=== PATIENT | female | born 1950 | race Caucasian/White ===

== ENCOUNTER 2020-07-05 10:00 | Outpatient (CLI) | payer BC, SELFPAY | END 2020-07-05 10:01 | disposition home or self-care (01) | LOC: ANHCOVIDVC 10:00 | PROVIDERS: PCP Family Medicine | DX: Z23 Encounter for immunization (principal) | CPT/HCPCS: 0001A; 91300 ==

== ENCOUNTER 2020-07-26 09:58 | Outpatient (CLI) | payer BC, SELFPAY | END 2020-07-26 09:59 | disposition home or self-care (01) | LOC: ANHCOVIDVC 09:58 | PROVIDERS: PCP Family Medicine | DX: Z23 Encounter for immunization (principal) | CPT/HCPCS: 0002A; 91300 ==

== ENCOUNTER → 2020-11-12 07:46 | Outpatient (CLI) | payer BC, SELFPAY ==
--- NOTE | ~2020-11-12 | MM_ITS ---
EXAMINATION: MM screening lula BI w fabiana HISTORY: Screening mammogram TECHNIQUE: Craniocaudal and mediolateral oblique 3-D tomosynthesis images were obtained and synthetic 2-D images were generated. CAD analysis was submitted and interpreted. COMPARISON: 01/09/2011 bilateral digital screening mammogram BREAST PARENCHYMAL COMPOSITION: The breasts are almost entirely fatty. FINDINGS: There is no evidence of suspicious mass, calcification, or architectural distortion to sugg est malignancy in either breast. There has been no suspicious interval change. IMPRESSION: 1. No mammographic evidence of malignancy. 2. Recommend routine screening mammography in one year. BI-RADS Category 1: Negative Reviewed, dictated and finalized at location A.
== END ==
PROVIDERS: PCP Family Medicine; Visit Provider Family Medicine
DX: Z12.31 Encounter for screening mammogram for malignant neoplasm of breast (principal)
CPT/HCPCS: 77063; 77067

== ENCOUNTER → 2022-03-02 12:03 | Outpatient (CLI) | payer MEDICARE, SELFPAY ==
--- NOTE | ~2022-03-02 | DEXA_ITS ---
Bone Density Report Name: TONIO YOUNG Age: 71 Sex: Female Ethnicity: White Date of : 1950 Indication: postmenopausal; screening for osteoporosis; history of glucocorticoids; Referring Provider: Mohan Tillman Study: Bone densitometry was performed. Exam Date: March 02, 2022 Accession number: [id number] Bone Density: Region BMD T-score Z-score Classification AP Spine (L1-L4) 0.816 -2.1 0.0 Osteopenia Femoral Neck (Left) 0.346 -4.5 -2.8 Osteoporosis Total Hip (Left) 0.564 -3.1 -1.6 Osteoporosis Femoral Neck (Right) 0.504 -3.1 -1.3 Osteoporosis Total Hip (Right) 0.611 -2.7 -1.2 Osteoporosis Total Hip Mean 0.588 -2.9 -1.4 Osteoporosis World Health Organization criteria for BMD impression classify patients as: Normal (T-score at or above -1.0), Osteopenia (T-score between -1.0 and -2.5), or Osteoporosis (T-score at or below -2.5). 10-year Fracture Risk: FRAX not reported because: Some T-score for Spine Total or Hip Total or Femoral Neck at or below -2.5 Clinical Information Provided by Patient: Has taken Glucocorticoids Has used the following medications: Calcium Patient maximum height was 62.0 Menopause Age: 47 No regular weight bearing exercise Does not regularly consume dairy products Drinks caffeinated beverages Onset of menses at age 14 Number of children 0 Impression: The patient has osteoporosis, based on the Left Femoral Neck T-score. The patient has risk factors, including: history of glucocorticoid therapy. Discussion: HIGH RISK OF FRACTURE. BONE DENSITY IS UNDESIRABLY LOW AT ONE OR MORE SKELETAL SITES, CONSISTENT WITH OSTEOPOROSIS. ALSO, BONE DENSITY IS LOWER THAN EXPECTED FOR AGE AND SEX AT ONE OR MORE SKELETAL SITES; RECOMMEND A DILIGENT SEARCH FOR SECONDARY CAUSES OF BONE LOSS. This patient's lowest T-score meets the World Health Organization's (WHO) criteria for osteoporosis at one or more sites (T-score -2.5 or below). In untreated patients, the risk of osteoporotic fracture increases approximately two-fold for each 1.0 SD decrease in T-score. Low bone density is not the only risk factor for fracture; also consider factors such as patient's age, frailty or poor health, risk of falling, risk of injury, previous osteoporotic fracture, family history of osteoporosis, cigarette smoking, low body weight, etc. Not everyone with low bone mineral density has osteoporosis; osteomalacia and other metabolic bone disorders should also be considered. Patients who have osteoporosis should be evaluated for specific diseases and conditions (secondary causes) that may cause or contribute to bone loss. The [place] [employer] (AACE) and National Osteoporosis Foundation (NOF) recommend pharmacologic intervention for all postmenopausal women whose T-score is in this range.
--- NOTE | ~2022-03-02 | MM_ITS ---
EXAMINATION: MM screening lula BI w fabiana HISTORY: Screening mammogram TECHNIQUE: Craniocaudal and mediolateral oblique 3-D tomosynthesis images were obtained and synthetic 2-D images were generated. CAD analysis was submitted and interpreted. COMPARISON: 11/08/2020, 01/09/2011 bilateral screening mammogram examinations BREAST PARENCHYMAL COMPOSITION: The breasts are almost entirely fatty. FINDINGS: There is no evidence of suspicious mass, calcification, or architectural distortion to sugg est malignancy in either breast. There has been no suspicious interval change. IMPRESSION: 1. No mammographic evidence of malignancy. 2. Recommend routine screening mammography in one year. BI-RADS Category 1: Negative Reviewed, dictated and finalized at location A. MAKER
== END ==
PROVIDERS: PCP Family Medicine; Visit Provider Family Medicine
DX: Z12.31 Encounter for screening mammogram for malignant neoplasm of breast (principal); Z78.0 Asymptomatic menopausal state; M85.88 Other specified disorders of bone density and structure, other site; M81.0 Age-related osteoporosis without current pathological fracture
CPT/HCPCS: 77063; 77067; 77080

== ENCOUNTER 2022-05-31 08:49 | Outpatient (CLI) | payer MEDICARE, SELFPAY ==
--- NOTE | ~2022-05-31 | US_ITS ---
Duplex Sonography of the bilateral lower extremities: Indication: Swelling Sagittal and transverse B-mode images as well as color-flow imaging were performed on the right and l eft femoral and popliteal veins. B-mode examination was done without and with compression in the tra nsverse plane. There is good visualization of the bilateral common femoral, proximal profunda femora l, superficial femoral, greater saphenous, and popliteal veins. Normal flow was seen on color-flow im aging. Normal compressibility was demonstrated. Calf veins are poorly visualized. Impression: No evidence of deep vein thrombosis involving the bilateral femoral, greater saphenous, s uperficial femoral, or popliteal veins. Reviewed, dictated and finalized at location M. N FARMER Impression: No evidence of deep vein thrombosis involving the bilateral femoral , greater saphenous, superficial femoral, or popliteal veins.
== END 2022-05-31 08:50 | disposition home or self-care (01) ==
PROVIDERS: PCP Family Medicine; Visit Provider Physician Assistant
DX: R60.0 Localized edema (principal); Z86.711 Personal history of pulmonary embolism
CPT/HCPCS: 93970

== ENCOUNTER 2022-09-18 14:36 | Emergency (ER) | payer MEDICARE, SELFPAY ==
[2022-09-18 14:47] VITALS: BP 135/69; PULSE 85; RESP 16; TEMP 36.7; O2SAT 99
--- NOTE | 2022-09-18 14:49 | ED.URI ---
HPI - URI/Sore Throat General Chief Complaint: Upper Respiratory Infection Stated Complaint: Fever Time Seen by Provider: 09/18/22 14:37 Source: patient Mode of arrival: ambulatory Limitations: no limitations History of Present Illness HPI Narrative: Yeimy is a 72-year-old female patient presenting to the clinic today with complaints of a sore throat, chills, and low-grade temperature x3 days. She does note that she does have some nasal drainage but has a history of seasonal allergies. MD elicited complaint: sore throat and nasal congestion Related Data Home Medications Medication Instructions Recorded Confirmed calcium carb-vit D3-minerals 600 1 tablet PO DAILY 03/09/19 08/14/22 mg calcium-400 unit tablet carboxymethyl 0.5 %-glycerin 1 1 drop ophthalmic (eye) Q6H PRN . 03/09/19 08/14/22 %-polysorb 80 0.5 %-PF eye dropperette (Refresh Optive Carlos-3 (PF)) cyanocobalamin (vitamin B-12) 1,000 mcg PO DAILY 03/09/19 08/14/22 1,000 mcg tablet (Vitamin B-12) famotidine 10 mg tablet (Pepcid AC) 10 mg PO DAILY 03/09/19 08/14/22 fexofenadine 180 mg tablet 180 mg PO DAILY 03/09/19 08/14/22 latanoprost 0.005 % eye drops 1 drop ophthalmic (eye) QPM 03/09/19 08/14/22 (Xalatan) triamcinolone acetonide 0.1 % 1 applic topical BID 03/09/19 08/14/22 topical cream mycophenolate mofetil 250 mg 1,000 mg PO Q12H 12/09/19 08/14/22 capsule pyridostigmine bromide 60 mg tablet 60 mg PO TID 12/09/19 08/14/22 Allergies Allergy/AdvReac Type Severity Reaction Status Date / Time glipizide Allergy Severe Swelling Verified 09/18/22 14:54 metformin Allergy Unknown Diarrhea Verified 09/18/22 14:54 amlodipine AdvReac Mild edema Verified 09/18/22 14:54 Review of Systems Review of Systems: Pertinent positives per HPI. Patient denies any fever, chills, rash, headache, visual changes, dizziness, cough, runny nose, sore throat, shortness of breath, chest pain, palpitations, nausea, vomiting, diarrhea, constipation, abdominal pain, or any urinary issues. [facility] Past Medical History Medical History History of pulmonary embolism Obesity Osteoporosis Family History Family History Mother Family history of primary malignant neoplasm of liver Social History Social History Smoking status: Former smoker Second hand tobacco smoke exposure: No Alcohol intake: never Substance use: never Substance use type: does not use Living arrangements: alone Occupation/Education: retired Gender identity (if verbalized by the patient): Female Sexual Orientation (if Verbalized by the Patient): Straight or Heterosexual Comments At the time of my signature, I reviewed and agree with the nursing past medical, surgical, social, and family history. There is no relevant family history pertinent to the patient complaint. Exam Narrative: General: Well-developed, well nourished, in no apparent distress Head: Normocephalic, atraumatic Eyes: Pupils equally round and reactive to light bilaterally, EOM intact, sclera and conjunctive clear, no discharge, lids normal Ears: TMs intact and clear, ear canals clear, no drainage, grossly hearing normal. Nose: Nares patent, no discharge, no inflammation, no sinus tenderness. Mouth: Oropharynx without lesions or masses, good dentition, MMM. Neck: Supple, trachea midline, no enlargement of anterior or posterior cervical nodes, no thyroid masses or goiter palpable. Cardio: Regular rate and rhythm, s1 and s2 normal, no murmur appreciated. Resp: Clear to auscultation bilaterally anteriorly and posteriorly, no rhonchi, rales, wheezing or rubs Course Course Emergency Course: Portions of this record may have been created with voice recognition software. Level of Care: Express Care Visit Vital Signs Vital s
== END 2022-09-18 15:07 | disposition home or self-care (01) ==
PROVIDERS: Emergency Provider Nurse Practitioner Family; PCP Family Medicine
DX: J02.9 Acute pharyngitis, unspecified (principal)
CPT/HCPCS: 87081; 87880; 99213; G0463

== ENCOUNTER 2023-04-17 05:01 | Emergency (ER) | payer MEDICARE, SELFPAY ==
--- NOTE | ~2023-04-17 | CT_ITS ---
EXAMINATION: CT abdomen pelvis wo con DATE: 04/17/2023 08:34 INDICATION: Left flank pain and hematuria TECHNIQUE: Computed tomography (CT) of the abdomen and pelvis was performed without intravenous contr ast. The dose-length product was 1445.64 mGy-cm. Automated exposure control and iterative reconstruct ion technique were employed. COMPARISON: None. FINDINGS: Lung bases are unremarkable. Heart size normal. No significant pleural or pericardial effus ion. Status post cholecystectomy. There is calcified granuloma in the liver. The liver, spleen, pancreas, adrenal glands are unremarkable. There are nonobstructing right renal st ones, largest measuring 5 mm. Nonobstructing left nephrolithiasis. Small exophytic hypodense lesions of the left kidney, most likely benign. Nonobstructive bowel gas pattern. There is a 4 mm stone at th e left UVJ. Mild hydronephrosis. No free air or free fluid. Nonobstructive bowel gas pattern. Mild germain mbar spondylosis. IMPRESSION: 1: Left UVJ stone measuring 4 mm with mild hydronephrosis. 2: Nonobstructing bilateral nephrolithiasis. Reviewed, dictated and finalized at location B. SEAL ASSEMBLER
[2023-04-17 05:02] VITALS: BP 180/71; PULSE 105; RESP 20; TEMP 36.8; O2SAT 94
[2023-04-17 07:00] VITALS: BP 166/92; PULSE 83; RESP 15; TEMP 36.4; O2SAT 98
[2023-04-17 08:14] LABS: Appearance Urine Clear (Clear); Bacteria Urine None Seen /hpf; Bilirubin Urine Negative (Negative); Blood Urine 2+ (Negative); Color Urine Yellow (Yellow); Glucose Urine UA Negative (Negative); Ketones Urine Negative (Negative); Leukocyte Esterase Ur Negative LEU/UL (Negative); Nitrate Urine Negative (Negative); Non Pathogenic Casts 0-2; Protein Urine 1+ mg/dL (Negative); Specific Grav Ur 1.012 (1.001-1.035); Squamous Epithelial Cell Urine Occasional /hpf (Few); Urobilinogen Urine 0.2 mg/dL (<2.0); WBC Urine 0-5 /hpf; pH Urine 5.5 (5.0-9.0)
[2023-04-17 08:19] LABS: Add Urine Microscopic? YES
--- NOTE | 2023-04-17 09:05 | ED.BACK ---
HPI - Back Pain/Injury General Chief Complaint: Back Pain/Injury Stated Complaint: lower back pain Time Seen by Provider: 04/17/23 07:00 History of Present Illness HPI Narrative: patient is a 72-year-old female who presents ER with left-sided flank pain. Sudden onset today. Moves into left upper abdomen. No urinary frequency urgency or dysuria. She has had no blood in her urine. No history kidney stones. No alleviating factors. Pain is mildly worsened by movement. Related Data Home Medications Medication Instructions Recorded Confirmed calcium carb-vit D3-minerals 600 1 tablet PO DAILY 03/09/19 01/07/23 mg calcium-400 unit tablet carboxymethyl 0.5 %-glycerin 1 1 drop ophthalmic (eye) Q6H PRN . 03/09/19 01/07/23 %-polysorb 80 0.5 %-PF eye dropperette (Refresh Optive Carlos-3 (PF)) cyanocobalamin (vitamin B-12) 1,000 mcg PO DAILY 03/09/19 01/07/23 1,000 mcg tablet (Vitamin B-12) famotidine 10 mg tablet (Pepcid AC) 10 mg PO DAILY 03/09/19 01/07/23 fexofenadine 180 mg tablet 180 mg PO DAILY 03/09/19 01/07/23 latanoprost 0.005 % eye drops 1 drop ophthalmic (eye) QPM 03/09/19 01/07/23 (Xalatan) triamcinolone acetonide 0.1 % 1 applic topical BID 03/09/19 01/07/23 topical cream mycophenolate mofetil 250 mg 1,000 mg PO Q12H 12/09/19 01/07/23 capsule pyridostigmine bromide 60 mg tablet 60 mg PO TID 12/09/19 01/07/23 Allergies Allergy/AdvReac Type Severity Reaction Status Date / Time glipizide Allergy Severe Swelling Verified 01/07/23 10:55 metformin Allergy Unknown Diarrhea Verified 01/07/23 10:55 amlodipine AdvReac Mild edema Verified 01/07/23 10:55 Review of Systems Review of Systems: All systems reviewed & are unremarkable except as noted in HPI and below Constitutional: Constitutional: Reports no additional constitutional complaints ENT: Reports system reviewed and no additional complaints, except as documented Gastrointestinal: Gastrointestinal: Reports no additional gastrointestinal complaints Genitourinary: Genitourinary: Denies hematuria, Denies nocturia, Denies dysuria, Denies pelvic pain and Reports flank pain PMFSH Past Medical History Medical History History of pulmonary embolism Obesity Osteoporosis Family History Family History Mother Family history of primary malignant neoplasm of liver Social History Social History Smoking status: Former smoker Second hand tobacco smoke exposure: No Alcohol intake: never Substance use: never Substance use type: does not use Living arrangements: alone Occupation/Education: retired Gender identity (if verbalized by the patient): Female Sexual Orientation (if Verbalized by the Patient): Straight or Heterosexual Exam Narrative: GENERAL: Well-appearing, well-nourished, and in no acute distress. HEAD: Normocephalic, atraumatic. ENT: Mucous membranes moist. CHEST: Clear to auscultation. No respiratory distress. HEART: Regular rate and rhythm. Normal peripheral pulses. ABDOMEN: Soft, nontender, nondistended Back: No CVA tenderness. There is some left-sided tenderness with palpation in the mid axillary line At the level of T12. EXTREMITIES: Normal range of motion. No edema. NEURO: Alert and oriented x3. PSYCH: Normal mood and affect. Course Course Emergency Course: Patient educated on her kidney stone and treatment plan. Will give Urology follow-up. Vital Signs Vital signs: Vital Signs Temperature 98.2 F 04/17/23 05:02 Pulse Rate 105 H 04/17/23 05:02 Respiratory Rate 20 04/17/23 05:02 Blood Pressure 180/71 H 04/17/23 05:02 Pulse Oximetry 94 04/17/23 05:02 Oxygen Delivery Room Air 04/17/23 05:02 Temperature 97.6 F 04/17/23 07:00 Pulse Rate 83 04/17/23 07:00 Respiratory Rate 15 04/17/23 07:00
[2023-04-17 09:18] VITALS: BP 144/84; PULSE 80; RESP 16; O2SAT 98
== END 2023-04-17 09:37 | disposition home or self-care (01) ==
PROVIDERS: Emergency Provider Emergency Medicine; PCP Family Medicine
DX: N20.1 Calculus of ureter (principal); Z86.711 Personal history of pulmonary embolism; E66.9 Obesity, unspecified; Z68.43 Body mass index [BMI] 50.0-59.9, adult; Z87.891 Personal history of nicotine dependence
CPT/HCPCS: 74176; 81001; 99284

== ENCOUNTER 2023-11-14 08:18 | Emergency (ER) | payer MEDICARE, SELFPAY ==
[2023-11-14 08:31] VITALS: BP 156/43; PULSE 90; RESP 20; TEMP 36.4; O2SAT 100
--- NOTE | 2023-11-14 08:31 | ED.GENADULT ---
HPI - General Adult General Chief complaint: Ear Stated complaint: Both Ears Irritation Time Seen by Provider: 11/14/23 08:31 Source: patient, RN notes reviewed and old records reviewed Mode of arrival: ambulatory Limitations: no limitations History of Present Illness HPI narrative: 63-year-old female presents to the [facility] with complaints of right ear discomfort after trying removed wax with both an [id number]-vtaufco solution and Q-tips. Patient's concern for excess wax in both ears. States on Saturday the right ear started feeling swollen and has had discomfort. Used [id number] earwax removed Onset (ago): day(s) (2) Treatments prior to arrival: none Related Data Home Medications Medication Instructions Recorded Confirmed calcium carb-vit D3-minerals 600 1 tablet PO DAILY 03/09/19 11/14/23 mg calcium-400 unit tablet carboxymethyl 0.5 %-glycerin 1 1 drop ophthalmic (eye) Q6H PRN . 03/09/19 11/14/23 %-polysorb 80 0.5 %-PF eye dropperette (Refresh Optive Carlos-3 (PF)) cyanocobalamin (vitamin B-12) 1,000 mcg PO DAILY 03/09/19 11/14/23 1,000 mcg tablet (Vitamin B-12) famotidine 10 mg tablet (Pepcid AC) 10 mg PO DAILY 03/09/19 11/14/23 fexofenadine 180 mg tablet 180 mg PO DAILY 03/09/19 11/14/23 latanoprost 0.005 % eye drops 1 drop ophthalmic (eye) QPM 03/09/19 11/14/23 (Xalatan) triamcinolone acetonide 0.1 % 1 applic topical BID 03/09/19 11/14/23 topical cream mycophenolate mofetil 250 mg 1,000 mg PO Q12H 12/09/19 11/14/23 capsule pyridostigmine bromide 60 mg tablet 60 mg PO TID 12/09/19 11/14/23 Allergies Allergy/AdvReac Type Severity Reaction Status Date / Time glipizide Allergy Severe Swelling Verified 11/14/23 08:29 diltiazem Allergy Unknown Rash Verified 11/14/23 08:29 metformin Allergy Unknown Diarrhea Verified 11/14/23 08:29 amlodipine AdvReac Mild edema Verified 11/14/23 08:29 Review of Systems Review of Systems: All systems reviewed & are unremarkable except as noted in HPI and below Constitutional: Constitutional: Reports no additional constitutional complaints Eyes: Eyes: Reports no additional eye complaints ENT: Reports as per HPI and Reports otalgia (right eat) Cardiovascular: Cardiovascular: Reports no additional cardiovascular complaints, Denies chest pain and Denies dyspnea Respiratory: Respiratory: Reports no additional respiratory complaints, Denies chest congestion, Denies cough and Denies dyspnea Gastrointestinal: Gastrointestinal: Reports no additional gastrointestinal complaints, Denies abdominal pain, Denies nausea and Denies vomiting Musculoskeletal: Musculoskeletal: Reports no additional musculoskeletal complaints Integumentary/Breasts: Skin/Breast: Reports system reviewed and no additional complaints, except as docu Neurologic: Reports system reviewed and no additional complaints, except as documented Psychiatric: Psychiatric: Reports no additional psychiatric complaints Allergic/Immunologic: Allergic/Immunologic: Reports no additional allergic/immunologic complaints PMFSH Past Medical History Medical History History of pulmonary embolism Kidney stones Obesity Osteoporosis Family History Family History Mother Family history of primary malignant neoplasm of liver Social History Social History Smoking status: Former smoker Second hand tobacco smoke exposure: No Alcohol intake: never Substance use: never Substance use type: does not use Living arrangements: alone Occupation/Education: retired Gender identity (if verbalized by the patient): Female Sexual Orientation (if Verbalized by the Patient): Straight or Heterosexual Comments At the time of my signature, I reviewed and agree with the nursing past medical, surgical, social, and family history. There is no relevant
== END 2023-11-14 08:58 | disposition home or self-care (01) ==
PROVIDERS: Emergency Provider Nurse Practitioner; PCP Family Medicine
DX: H61.23 Impacted cerumen, bilateral (principal); S00.411A Abrasion of right ear, initial encounter; X58.XXXA Exposure to other specified factors, initial encounter; E66.9 Obesity, unspecified; Z68.43 Body mass index [BMI] 50.0-59.9, adult; M81.0 Age-related osteoporosis without current pathological fracture; Z86.711 Personal history of pulmonary embolism; Z87.891 Personal history of nicotine dependence
CPT/HCPCS: 69210; 69209; 99213; A9270; G0463